=== PATIENT | female | born 1990 | race Caucasian/White ===

== ENCOUNTER 2016-05-09 12:07 | Inpatient (IN) | payer MEDICAID ==
[~2016-05-09] VITALS: Ht 166.4 cm; Wt 89.9 kg
[2016-05-09] MEDS: LACTATED RINGER'S 1,000 ML IV SCH ×3 (12:30→23:25)
[2016-05-09 12:39] VITALS: Ht 166.4 cm; Wt 89.9 kg
[2016-05-09] MEDS ORDERED: PREN-17 PO (12:48)
[2016-05-09 12:50] VITALS: BP 122/75; PULSE 69; RESP 18
[2016-05-09] MEDS ORDERED: LIDOCAINE 1% (MPF) 30 ML INJ INJ PRN (13:00)
[2016-05-09] MEDS ORDERED: IBUPROFEN 600 MG TAB PO PRN (13:00)
[2016-05-09] MEDS ORDERED: CARBOPROST 250 MCG INJ IM PRN (13:00)
[2016-05-09] MEDS ORDERED: MISOPROSTOL 200 MCG TAB PR PRN (13:00)
[2016-05-09] MEDS ORDERED: BUTORPHANOL 2 MG INJ IV PRN (13:00)
[2016-05-09] MEDS ORDERED: OXYTOCIN 30 UNITS/LR 500 ML IV PRN (13:00)
[2016-05-09] MEDS ORDERED: METHYLERGONOVINE 0.2 MG INJ IM PRN (13:00)
[2016-05-09] MEDS ORDERED: DINOPROSTONE 10 MG VAG SUPP VAG ONE (13:00)
[2016-05-09] MEDS ORDERED: OXYTOCIN 30 UNITS/LR 500 ML IV SCH ×2 (13:00)
[2016-05-09 13:06] LABS: ADD SCAN DIFF NO
[2016-05-09 13:10] LABS: BASOPHILS % 0.3 % (0.0-2.0); EOSINOPHILS # 0.1 10^3/ul (0.0-0.5); EOSINOPHILS % 0.5 % (0.0-7.0); HEMATOCRIT 39.4 % (37.0-47.0); HEMOGLOBIN 13.3 g/dl (12.0-16.0); LYMPHOCYTES # 1.9 10^3/ul (0.8-2.9); MEAN CORPUSCULAR HEMOGLOBIN 30.9 pg (29.0-33.0); MEAN CORPUSCULAR HGB CONC 33.8 g/dl (32.0-37.0); MEAN CORPUSCULAR VOLUME 91.6 fl (82.0-101.0); MEAN PLATELET VOLUME 12.6 fl (7.4-10.4); MONOCYTE # 0.8 10^3/ul (0.3-0.9); MONOCYTES % 7.1 % (0.0-11.0); NEUTROPHIL # 8.3 10^3/ul (1.6-7.5); NEUTROPHILS % 74.2 % (39.0-77.0); PLATELET COUNT 136 10^3/UL (140-415); RED CELL DISTRIBUTION WIDTH 13.2 % (11.5-14.5); WHITE BLOOD COUNT 11.2 10^3/ul (4.8-10.8)
[2016-05-09 13:21] LABS: INR 0.92; PROTIME 12.4 Sec (12.2-14.2)
[2016-05-09 13:22] LABS: PARTIAL THROMBOPLASTIN TIME 28.8 Sec (25.0-35.0)
--- NOTE | 2016-05-09 14:17 | NSTRPT ---
NST Information Datetime Report Generated by CPN: 05/09/2016 14:17 Datetime: 05/08/2016 09:58 NST Information EGA: 39.5 Test Number: 2 Time on Monitor: 05/08/2016 10:00 Time off Monitor: 05/08/2016 10:26 NST Duration (Min): 26 Reason for NST: Other Reason for NST Other: RH Sensitization. Test and Monitor Explained: Monitor Explained; Test Explained; Verbalized Understanding; Breastfee ding Info Given Pulse: 81 Resp: 18 SBP: 111 DBP: 71 Test Evaluation NST Interventions: Reposition Patient Patient States Movement: Present Contraction Frequency: none FHR Baseline : 120 Variability: Moderate 6-25bpm Accelerations: 15X15 Decelerations: None FHR Category: Category I NST Results: Reactive Comments: PT TO U/S. MARGARETTE 15.1cm. cephalic. 1030-Pt Home undelivered with LABOR precautions. Follow up NST appointment given. Kick Count instructions reviewed. Pt states understanding. No furth er questions asked at this time. Electronically Signed By E-Signature: with User ID: [id number] Datetime: 05/01/2016 09:36 NST Information EGA: 38.5 Datetime: 05/01/2016 09:34 NST Duration (Min): 42
[2016-05-09] MEDS ORDERED: LACTATED RINGER'S 1,000 ML IV PRN (15:00)
--- NOTE | 2016-05-09 17:55 | HP ---
Date/Time of Note Date/Time of Note DATE: 05/09/16 TIME: 17:53 OB - History Hx of Present Free Text/Dictation admitted for induction at term Last Menstrual Period: August 04, 2015 Estimated Due Date: May 10, 2016 : 1 Para: 0 Care: Good Care Ultrasounds: Normal mid trimester US Obstetrical Complications: Other (Rh negative) Medical Complications: None Past Family/Social History * Past Medical, Surgical, Family and Obstetric Histories reviewed from chart. Blood Type: O- Rubella: immune RPR/VDRL: Negative GBS Status: Negative HBsAG: Negative OB Admission Exam Vital Signs Vital Signs Vital Signs Date Time Temp Pulse Resp B/P Pulse Ox O2 Delivery O2 Flow Rate FiO2 05/09/16 12:50 98.3 69 18 122/75 Room Air Physical Exam HEENT: WNL Heart: Rhythm Normal Lungs: Clear, Equal Abdomen: WNL Extremities: Normal Reflexes: Normal Cervical Dilatation: None Effacement: 0% Station: -3 Membranes: Intact Heart Rate: 130's Accelerations: Accelerations Present Decelerations: No Decelerations Varibility: Marked Contractions on Admission: None Last 72 hours Lab Results CBC & BMP 05/09/16 12:30 OB Assessment/Plan Reason for admission: induction of labor Other Assessment: term gestation Induction Method: per Misoprostol Protocol MILDRED MARQUES MD May 09, 2016 17:55
[2016-05-10] MEDS: LACTATED RINGER'S 1,000 ML IV SCH ×3 (00:17→14:25)
[2016-05-10] MEDS ORDERED: FENTAnyl 2MCG/ML-ROPIV 0.2% 100 ML ONE (00:23)
[2016-05-10] MEDS ORDERED: NALOXONE (0.4 MG/ML) INJ IV PRN (05:30)
[2016-05-10] MEDS: FENTAnyl 2MCG/ML-ROPIV 0.2% 100 ML BAG EPI SCH ×2 (05:51→15:30)
[2016-05-10] MEDS ORDERED: MINERAL OIL 30ML CUP PO ONE (08:00)
[2016-05-10] MEDS ORDERED: MINERAL OIL LIGHT 10 ML VIAL TOP ONE (08:00)
[2016-05-10] MEDS ORDERED: AMPICILLIN 2 GM/NS (PMX) 100 ML ONE (10:27)
[2016-05-10] MEDS ORDERED: AMPICILLIN 2 GM/NS (PMX) 100 ML IVPB ONE (11:00)
[2016-05-10] MEDS ORDERED: AMPICILLIN 1 GM/NS (PMX) 50 ML IVPB SCH (15:00)
--- NOTE | 2016-05-10 17:43 | LDN ---
Date/Time of Note Date/Time of Note DATE: 05/10/16 TIME: 17:40 Delivery Summary of of a viable over intact perineum Placenta Delivered: Spontaneously, Intact & Complete Meconium: none, Thick Perineum intact?: Yes Perineal laceration repair: 2 X vaginal lacerations were repaired with 2 0 Vicryl Anesthesia type: Epidural Estimated blood loss: 300 Sponge & Needle done & correct: Yes All needle counts correct: Yes Any foreign bodies felt in the: No Problems: Delivery Information Sex Infant Sex: male Apgars 1 Minute: 9 5 Minute: 9 Suctioning Nose & mouth suctioned at ed: Yes Delee suction performed: No Umbilical Cord Umbilical cord with: 3 Vessels Cord presentations: nuchal cord Nuchal cord present X: 2 Cord Blood was obtained: Yes Mother & Baby Disposition Disposition Mom & Baby to Maternity; Good: Yes (mother and baby were recovered in good condition ) Mom transferred to: Other (maternity ) Baby to NICU: No MILDRED MARQUES MD May 10, 2016 17:43
[2016-05-10] MEDS ORDERED: METHYLERGONOVINE 0.2 MG INJ IM PRN (20:00)
[2016-05-10] MEDS ORDERED: OXYTOCIN 30 UNITS/LR 500 ML IV PRN (20:00)
[2016-05-10] MEDS ORDERED: BENZOCAINE 20% 56 ML SPRAY TOP PRN (20:00)
[2016-05-10] MEDS ORDERED: MISOPROSTOL 200 MCG TAB PR PRN (20:00)
[2016-05-10] MEDS ORDERED: CARBOPROST 250 MCG INJ IM PRN (20:00)
[2016-05-10] MEDS ORDERED: ZOLPIDEM 5 MG TAB PO PRN (20:00)
[2016-05-10] MEDS ORDERED: DIBUCAINE 1% 30 GM OINT PR PRN (20:00)
[2016-05-10] MEDS ORDERED: WITCH HAZEL/GLYCERIN PAD PR PRN (20:00)
[2016-05-10] MEDS ORDERED: LANOLIN 7 GM TUBE TOP PRN (20:00)
[2016-05-10] MEDS ORDERED: ACETAMINOPHEN/CODEINE #3 TAB PO PRN ×2 (20:00)
[2016-05-10 20:57] VITALS: BP 119/61; PULSE 69; RESP 20
[2016-05-10 21:07] VITALS: BP 115/67; PULSE 66; RESP 19
[2016-05-10] MEDS: MAGNESIUM HYDROXIDE 30ML CUP PO SCH (21:13)
[2016-05-10] MEDS: SENNA/DOCUSATE NA (8.6MG/50MG) TAB PO SCH (21:14)
[2016-05-10] MEDS: LACTATED RINGER'S 1,000 ML IV* SCH (22:00)
[2016-05-10] MEDS: IBUPROFEN 600 MG TAB PO SCH (23:07)
[2016-05-10] MEDS: CEPHALEXIN 500 MG CAP PO SCH (23:07)
[2016-05-11 04:00] VITALS: BP_SYST 107; BP_SYST 109; BP_DIAS 63; BP_DIAS 64; PULSE 61; PULSE 65; RESP 17; RESP 18
[2016-05-11] MEDS: CEPHALEXIN 500 MG CAP PO SCH ×4 (05:57→23:52)
[2016-05-11] MEDS: IBUPROFEN 600 MG TAB PO SCH ×4 (05:57→23:52)
[2016-05-11] MEDS: LACTATED RINGER'S 1,000 ML IV* SCH ×2 (07:30→11:41)
[2016-05-11 07:42] LABS: ADD SCAN DIFF NO
[2016-05-11 07:50] LABS: BASOPHILS % 0.3 % (0.0-2.0); EOSINOPHILS # 0.1 10^3/ul (0.0-0.5); EOSINOPHILS % 0.8 % (0.0-7.0); HEMATOCRIT 30.5 % (37.0-47.0); LYMPHOCYTES # 1.9 10^3/ul (0.8-2.9); LYMPHOCYTES % 16.3 % (15.0-51.0); MEAN CORPUSCULAR HEMOGLOBIN 30.3 pg (29.0-33.0); MEAN CORPUSCULAR HGB CONC 32.8 g/dl (32.0-37.0); MEAN CORPUSCULAR VOLUME 92.4 fl (82.0-101.0); MEAN PLATELET VOLUME 12.4 fl (7.4-10.4); MONOCYTE # 0.7 10^3/ul (0.3-0.9); MONOCYTES % 5.8 % (0.0-11.0); NEUTROPHILS % 75.8 % (39.0-77.0); PLATELET COUNT 103 10^3/UL (140-415); RED CELL DISTRIBUTION WIDTH 13.2 % (11.5-14.5); WHITE BLOOD COUNT 11.8 10^3/ul (4.8-10.8)
[2016-05-11 08:45] VITALS: BP 110/61; PULSE 65; RESP 18
[2016-05-11] MEDS: SENNA/DOCUSATE NA (8.6MG/50MG) TAB PO SCH ×2 (09:15→20:47)
[2016-05-11] MEDS: MAGNESIUM HYDROXIDE 30ML CUP PO SCH ×2 (09:15→20:47)
[2016-05-11 12:30] VITALS: BP 117/66; PULSE 67; RESP 18
[2016-05-11 16:07] VITALS: BP 103/58; PULSE 80; RESP 18
--- NOTE | 2016-05-11 19:54 | DS ---
Date/Time of Note Date/Time of Note home next day DATE: 05/11/16 TIME: 19:53 Obstetrical Discharge Record Final Diagnosis Final Diagnosis: Term delivered Other Final Diagnosis S/P vaginal delivery Vaginal Delivery Obstetrical Delivery: Spontaneous, Laceration, Repaired Complications Induction: Yes Condition on Discharge Physical Assessment Last Vitals: see nurses notes Voiding: Yes Bowel Movement: Yes Breast: Soft, non-tender, Filling Fundus: Firm Calf Tenderness: No Patient Condition: Good MILDRED MARQUES MD May 11, 2016 19:54
[2016-05-11] MEDS ORDERED: IBUP-1542 PO (19:56)
--- NOTE | 2016-05-11 19:56 | PD.PPDC ---
SENIOR ENVIRONMENTAL CONSULTANT Discharge Instruction Provider Information Physician Information 27 y/o female had vaginal delivery and decreased platelet count after delivery Diagnosis Final Diagnosis: S/P vaginal delivery Condition Patient Condition: Good Diet Diet: Resume Regular Diet Activity/Restrictions Activity: Normal Activity May Shower Restrictions: Nothing in the Vagina Return to Work or School: Jul 01, 2016 Follow-up Follow-up with Physician: 6, Day/Days (in clinic for F/U) Return to clinic for OB Instructions: Breast Tenderness Depression Blurried Vision Headache MILDRED MARQUES MD May 11, 2016 19:56
[2016-05-11 20:00] VITALS: BP 120/55; PULSE 72; RESP 18
[2016-05-12 04:00] VITALS: BP 114/70; PULSE 68; RESP 18
[2016-05-12] MEDS: CEPHALEXIN 500 MG CAP PO SCH ×3 (05:25→17:21)
[2016-05-12] MEDS: IBUPROFEN 600 MG TAB PO SCH ×3 (05:25→17:21)
[2016-05-12 07:23] LABS: ADD SCAN DIFF NO
[2016-05-12 07:33] LABS: BASOPHILS % 0.3 % (0.0-2.0); EOSINOPHILS # 0.2 10^3/ul (0.0-0.5); EOSINOPHILS % 1.6 % (0.0-7.0); HEMATOCRIT 28.6 % (37.0-47.0); HEMOGLOBIN 9.8 g/dl (12.0-16.0); LYMPHOCYTES # 2.1 10^3/ul (0.8-2.9); LYMPHOCYTES % 21.8 % (15.0-51.0); MEAN CORPUSCULAR HEMOGLOBIN 31.8 pg (29.0-33.0); MEAN CORPUSCULAR HGB CONC 34.3 g/dl (32.0-37.0); MEAN CORPUSCULAR VOLUME 92.9 fl (82.0-101.0); MEAN PLATELET VOLUME 11.7 fl (7.4-10.4); MONOCYTE # 0.6 10^3/ul (0.3-0.9); NEUTROPHIL # 6.7 10^3/ul (1.6-7.5); NEUTROPHILS % 68.9 % (39.0-77.0); PLATELET COUNT 113 10^3/UL (140-415); RED BLOOD COUNT 3.08 10^6/ul (4.20-5.40); RED CELL DISTRIBUTION WIDTH 13.3 % (11.5-14.5); WHITE BLOOD COUNT 9.7 10^3/ul (4.8-10.8)
[2016-05-12 07:35] VITALS: BP 109/62; PULSE 63; RESP 18
[2016-05-12] MEDS: LACTATED RINGER'S 1,000 ML IV* SCH ×2 (07:44→10:56)
[2016-05-12] MEDS ORDERED: DIPHTH/TET/ACEL PERTUSS (ADULT) 0.5 ML VIAL IM* ONE (09:00)
[2016-05-12] MEDS ORDERED: VARICELLA VACCINE LIVE/PF 1,350 UNIT/0.5 ML ML SC* ONE (09:00)
[2016-05-12] MEDS ORDERED: MEASLES,MUMPS,RUBELLA VACCINE INJ SC* ONE (09:00)
[2016-05-12] MEDS: SENNA/DOCUSATE NA (8.6MG/50MG) TAB PO SCH (10:11)
[2016-05-12] MEDS: MAGNESIUM HYDROXIDE 30ML CUP PO SCH (10:12)
[2016-05-12 15:35] VITALS: BP 120/63; PULSE 81; RESP 19
== END 2016-05-12 18:49 | disposition home or self-care (01) | DRG 775 ==
LOC: L-D 12:07 → PP1 05-10 20:07 → EDSTATUS 05-13 12:05
PROVIDERS: ADMIT Obstetrics & Gynecology; ATTEND Obstetrics & Gynecology
PROC: 10E0XZZ Delivery of Products of Conception, External Approach (ICD-10-PCS; principal; 2016-05-10)
PROC: 0UQGXZZ Repair Vagina, External Approach (ICD-10-PCS; 2016-05-10)
DX: O71.4 Obstetric high vaginal laceration alone (principal); O77.0 Labor and delivery complicated by meconium in amniotic fluid; Z37.0 Single live birth; Z3A.39 39 weeks gestation of pregnancy; O69.81X0 Labor and delivery complicated by cord around neck, without compression, not applicable or unspecified
CPT/HCPCS: 62319; 84112; 85025; 85610; 85730; 86592; 86850; 86870; 86885; 86900; 86901; 87340; 90715; 90716; 99464; J0290; J2590; J2790; J3010; J7120